=== PATIENT | female | born 1960 | race African-American/Black ===

== ENCOUNTER 2022-07-29 14:06 | Emergency (ER) | payer MEDICAID, OTHER ==
[~2022-07-29] VITALS: Ht 167.6 cm; Wt 58.0 kg
[2022-07-29 14:18] VITALS: BP 147/74
== END 2022-07-29 22:25 | disposition left against medical advice (07) ==
LOC: ER 14:06
DX: Z53.21 Procedure and treatment not carried out due to patient leaving prior to being seen by health care provider (principal)

== ENCOUNTER 2023-09-27 02:59 | Emergency (ER) | payer MEDICAID, OTHER ==
[~2023-09-27] VITALS: Ht 165.1 cm; Wt 60.0 kg
[2023-09-27 03:00] VITALS: TEMP 97.8; O2SAT 98
[2023-09-27 06:00] VITALS: BP 176/80; PULSE 84; RESP 18
[2023-09-27] MEDS ORDERED: KETOROLAC 60MG/2ML VIAL IM ONE (06:00)
[2023-09-27] MEDS ORDERED: METHOCARBAMOL 500MG TABLET PO ONE (06:00)
[2023-09-27] MEDS ORDERED: ACET-2708 MT (07:05)
== END 2023-09-27 08:05 | disposition home or self-care (01) ==
LOC: ER 02:59
DX: G89.29 Other chronic pain (principal); M54.50 Low back pain, unspecified; J44.1 Chronic obstructive pulmonary disease with (acute) exacerbation; I10 Essential (primary) hypertension
CPT/HCPCS: 99283; 72100; 96372; J1885